=== PATIENT | male | born 1960 | race African-American/Black ===

== ENCOUNTER 2016-08-28 23:18 | Emergency (ER) | payer OTHER ==
[~2016-08-28] VITALS: Ht 180.3 cm; Wt 122.5 kg
--- NOTE | ~2016-08-28 | EKG ---
[address] [employer] [place] [address] ELECTROCARDIOGRAM REPORT Name: FREDERICK LOBO [facility] [id number] Admission: 08/28/16 Attend Phys: Discharge: 08/29/16 Date of : 58 Report #: [id number] THIS REPORT FOR: //name// [facility] ED Test Date: 2016-08-28 Test Time: 23:44:02 Pat Name: FREDERICK LOBO Department: Room: Gender: M [employer]ician: carola : 1960 Requested By: Chantell Decker Order Number: [id number] MD: Jeff Fischer Measurements Intervals [place] Rate: 68 P: 36 CO: 176 QRS: 2 QRSD: 78 T: -7 QT: 393 QTc: 418 Interpretive Statements Sinus rhythm Borderline T abnormalities, inferior leads Minimal ST elevation, lateral leads Baseline wander in lead(s) V3 Compared to ECG 07/07/2009 08:50:47 ST (T wave) deviation now present First degree AV block no longer present T-wave abnormality still present Electronically Signed On 08-29-2016 20:21:37 CDT by Jeff Fischer [email or web address] <ELECTRONICALLY SIGNED> By: Jeff Fischer MD 08/29/162020 43 Jeff Fischer MD /EPI
[~2016-08-28 23:18] MED LIST: FLEXERIL PO; IBUPROFEN 600600 M1 PO; LISINOPRIL10 MG PO; MECLIZINE HCL25 M1 PO; NORCO 5-325 TA1 EACH PO; PRILOSEC 20 MG20 MG PO; ULTRAM 50MG TAB50 MG PO; VALIUM5 MG PO; ZOFRAN ODT4 MG PO
[2016-08-28 23:38] LABS: URINE BILIRUBIN NEGATIVE (Negative); URINE BLOOD NEGATIVE (Negative); URINE COLOR YELLOW; URINE GLUCOSE-RANDOM* NEGATIVE (Negative); URINE KETONES NEGATIVE (Negative); URINE NITRITE NEGATIVE (Negative); URINE PROTEIN (DIPSTICK) TRACE (Negative); URINE SPECIFIC GRAVITY >= 1.030 (1.003-1.035); URINE UROBILINOGEN 0.2 E.U./dl (0.2-1.0)
[2016-08-28] MEDS ORDERED: ZOCOR 10 MG TAB10 MG PO (23:42)
[2016-08-28] MEDS ORDERED: COZAAR 50 MG TA50 M2 PO (23:43)
[2016-08-28] MEDS ORDERED: COZAAR 25 MG TA25 M1 PO (23:45)
[2016-08-28] MEDS ORDERED: NORVASC2.5 MG PO ×2 (23:47→23:49)
[2016-08-28] MEDS ORDERED: METFORMIN HCL500 MG PO (23:50)
[2016-08-29 00:04] LABS: ABSOLUTE NEUTROPHILS 3.2 thou/uL (1.4-8.2); BASOPHILS 1.4 % (0.0-2.0); EOSINOPHILS 3.8 % (0.0-3.0); HEMATOCRIT 43.1 % (42.0-52.0); HEMOGLOBIN 14.6 gm/dL (14.0-18.0); LYMPHOCYTES 38.8 % (24.0-44.0); MCH 27.2 pg (26.0-34.0); MCHC 33.7 g/dL (28.0-37.0); MCV 80.6 fL (80.0-100.0); MONOCYTES 9.6 % (1.0-8.0); PLATELET COUNT 374 thou/uL (150-400); POLYS 46.4 % (36.0-66.0); RBC 5.35 mil/uL (4.50-6.00); RDW 14.7 % (10.5-14.5)
[2016-08-29 00:06] LABS: MANUAL DIFF NO
[2016-08-29 00:15] LABS: ANION GAP 12 mmol/L (7-16); BUN 12 mg/dL (7-18); CALCIUM 8.8 mg/dL (8.5-10.1); CHLORIDE 101 mmol/L (98-107); CO2 26 mmol/L (21-32); GLUCOSE 113 mg/dL (74-106); SODIUM 139 mmol/L (136-145)
[2016-08-29 00:24] LABS: TROPONIN-I < 0.04 ng/mL (<0.04-0.07)
[2016-08-29] MEDS ORDERED: NORCO 5-325 TA1 EACH PO (00:31)
[2016-08-29 00:44] VITALS: BP 135/83
[2016-08-30] MEDS ORDERED: LIDODERM 5%1 PATC1 TRANSDERM (12:07)
== END 2016-08-29 00:48 | disposition home or self-care (01) ==
LOC: ER 23:18
PROVIDERS: Emergency Medicine
DX: S39.012A Strain of muscle, fascia and tendon of lower back, initial encounter (principal); I10 Essential (primary) hypertension; Z85.89 Personal history of malignant neoplasm of other organs and systems; X58.XXXA Exposure to other specified factors, initial encounter; Y93.89 Activity, other specified; Y92.89 Other specified places as the place of occurrence of the external cause; Y99.8 Other external cause status

== ENCOUNTER 2016-08-30 10:42 | Emergency (ER) | payer OTHER ==
[~2016-08-30] VITALS: Ht 180.3 cm; Wt 122.5 kg
[~2016-08-30 10:42] MED LIST changes: +COZAAR 25 MG TA25 M1 PO; +COZAAR 50 MG TA50 M2 PO; +METFORMIN HCL500 MG PO; +NORVASC2.5 MG PO; +ZOCOR 10 MG TAB10 MG PO
[2016-08-30] MEDS ORDERED: LIDODERM 5%1 PATC1 TRANSDERM (12:07)
[2016-08-30 12:42] VITALS: BP 128/74
== END 2016-08-30 12:44 | disposition home or self-care (01) ==
LOC: ER 10:42
DX: R10.9 Unspecified abdominal pain (principal); I10 Essential (primary) hypertension; Z86.39 Personal history of other endocrine, nutritional and metabolic disease